=== PATIENT | female | born 1960 | race Two or more races ===

== ENCOUNTER 2023-01-07 06:24 | Day surgery (SDC) | payer OTHER ==
[~2023-01-07] VITALS: Ht 157.5 cm; Wt 55.3 kg
[~2023-01-07 06:24] MED LIST: CLIMARA1 EAC2 TD; GABAPENTIN400 MG PO; GOCOVRI68.5 MG PO; PROGESTERONE200 MG PO; SIMVASTATIN5 MG PO; SINEMET 25-1001 EACH PO
== END 2023-01-07 16:30 | disposition home or self-care (01) ==
LOC: CIR.AMB 06:24
PROVIDERS: ATTEND Obstetrics & Gynecology
DX: N84.0 Polyp of corpus uteri (principal); N95.0 Postmenopausal bleeding; Z20.822 Contact with and (suspected) exposure to COVID-19; I51.7 Cardiomegaly